=== PATIENT | male | born 1970 | race Caucasian/White ===

== ENCOUNTER 2018-02-24 10:49 | Emergency (ER) | payer OTHER, SELFPAY ==
[2018-02-24 10:49] VITALS: BP 178/108; PULSE 66; RESP 20; TEMP 37.2; O2SAT 97; BMI 44.3
--- NOTE | 2018-02-24 10:59 | RAD_ITS ---
STUDY: X-RAY - LEFT FOOT CLINICAL: Male, 47 years old. Laceration and pain following injury. TECHNIQUE: 3 view(s) of the foot. COMPARISON: None. FINDINGS: There is a dorsal talar neck ?beak?. Normal visualized subtalar, talonavicular, calcaneocuboid, tarsal and tarsometatarsal articulations. Normal metatarsi. Normal metatarsophalangeal joint of the great toe. Normal tibial and fibular sesamoid bones. Normal interphalangeal joint of the great toe. Comminuted nondisplaced fracture at the tuft of the distal phalanx of the great toe. Tiny radiopacities are seen most likely within the nailbed. Normal second through fifth metatarsophalangeal joints. Normal interphalangeal joints and phalanges of the lesser toes. There is non-specific soft tissue swelling of the foot. RAD/Foot min 3 Views IMPRESSION: Nondisplaced comminuted fracture at the tuft of the distal phalanx of the great toe with a tiny radiopacities most likely within the nailbed. Electronically Signed: Cameron Chavarria MD at 11:38 EDT Tel [phone], Service support ,
--- NOTE | 2018-02-24 11:01 | ED.VISSUMM ---
- ER Visit Summary Date of Service: 02/24/18 Chief Complaint: Crush injury left great toe History of Present Illness: The patient is a 47 M who is otherwise healthy presents with crush injury to left great toe. She was in his normal state of health. He had samples on was moving a piece of sheet metal. 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 He suffered immediate pain and bleeding. He is unsure of his last tetanus shot. He takes no anticoagulants. The patient is otherwise healthy. He did apply dressing presented here for further evaluation. Physical Examination: Exam is relatively unremarkable. Patient does have a 3 cm full-thickness laceration from the lateral distal aspect of the left great toe that tracks proximally medially across the nail. There is nail involvement. Sensation is preserved. Minimal active bleeding. Test Results: [] Emergency Department Course and Treatment: Digital block was performed. The patient's tetanus was updated. I did obtain plain films. The patient has open tuft fracture of the distal phalanges but there is retained metallic foreign bodies. Given the mechanism of injury, complex nail injury, and retained foreign bodies of fracture I did discuss the patient with Dr. Valdez. Did come to the emergency department to evaluate the patient. He did repair the laceration. See his documentation for that note. The patient will be discharged on oral antibiotics and will follow up with Dr. lewis for reevaluation. Treatment Plan: [] Disposition: Charge Impression: 1. Open tuft fracture with nail bed laceration This note was generated with [employer] dictation software. It may contain incorrect words, spelling, and punctuation that were not noted in review of the chart prior to signing ED Disposition - Plan for ED Patient: Chief Complaint: Laceration Instructions: ED Laceration Foot Prescriptions: Amox/Clavulanate Tablet [Augmentin Tablet] 875 mg PO Q12H #20 tab Ciprofloxacin [Cipro] 500 mg PO BID #14 tab Referrals: Garry Valdez DPM [STAFF PHYSICIAN] -
[2018-02-24 11:39] VITALS: BP 176/90
[2018-02-24] MEDS: Diphth,Pertuss(Acell),Tet Vac 0.5 ML Vial IM (11:40)
[2018-02-24] MEDS: Bupivacaine Mpf 0.5% 30 ML VIAL INFILT (11:42)
[2018-02-24] MEDS: Cefazolin 1 GM/50 ML BAG IV (12:22)
--- NOTE | 2018-02-24 14:15 | PCM.CONS.GEN ---
Reason for Consult Date of Consultation: 02/24/18 Reason for Consultation: Left great toe injury History of Present Illness: The patient is a 47 year old gentleman with history of HTN, presented to the ER today after dropping sheet metal on left great toe. He injured the toenail and sustained laceration and open fracture. Xrays showed foreign metallic fragments in the site. I was called by the ER, Dr. Leon for further evaluation. Patient relates he was wearing flip flops at time of injury at work. He denies any other complaints. Past Medical History Allergies tetracycline [Tetracycline] Allergy (Verified 02/24/18 10:51) Unknown Home Medications: Ambulatory Orders Medication Instructions Recorded Lisinopril/Hydrochlorothiazide 10 - 12.5 mg PO DAILY 05/06/14 [Lisinopril-Hctz 10-12.5 mg Tab] Amox/Clavulanate Tablet [Augmentin 875 mg PO Q12H #20 tab 02/24/18 Tablet] Ciprofloxacin [Cipro] 500 mg PO BID #14 tab 02/24/18 Smoking Status: Never smoker Review of Systems Constitutional: Denies: Chills, Fever Respiratory: Reports: Shortness of breath at rest. Denies: Shortness of Breath Gastrointestinal: Denies: Nausea, Vomiting Musculoskeletal: Reports: Foot Pain - from left great toe injury, otherwise no other pain present. Denies: Back Pain, Joint Pain, Muscle pain - Physical Exam General: Alert, Oriented x3, Cooperative, No apparent distress Extremities: Capillary Refill Less than 3 Seconds, No Calf Tenderness, Peripheral Pulses Normal, - - Left hallux with deep laceration overlying the distal aspect of the toe, down to bone, there is metallic fragments in the wound bed, CFT < 2 seconds to the toe, and to all toes bilateral. There is no maloder, no necrosis, no fluctuance, no crepitus, no abscess, no streaking, no erythema to the foot or ankle bilateral. Sensation is intact bilateral foot, motor function intact. DP and PT pulses palpable and no evidence of ischemia to the foot bilateral. Muscle strength intact to the foot/ankle bilateral. Skin: Ulcer/ Wound - Left hallux as already noted, otherwise none noted. Psych/Mental Status: Appropriate, Alert and oriented to time, place, person, mood and affect Vital Signs Temp Pulse Resp BP Pulse Ox 99 F 66 20 H 176/90 H 97 02/24/18 10:49 02/24/18 10:49 02/24/18 10:49 02/24/18 11:39 02/24/18 10:49 Oxygen Delivery Method Room Air Weight: 136.078 kg Body Mass Index (BMI) 44.3 Assessment/Plan Left great toe nail bed injury, laceration, and distal phalanx fracture - open with foreign body Reviewed findings with patient. Reviewed left foot xrays. Discussed the options with patient. He agreed with proceed forward with total toenail avulsion/removal, with debrde, irrigation and closure to the left great toe. Reviewed the procedure, possible benefits vs risks, and all alternative options. This was discussed with him in detail. He agreed, the consent form was reviewed with him, he freely signed it. All of his questions were answered. The left great toe had already be anesthetized by Dr. Leon. Also patient had already received IV Ancef per Dr. Leon. The left foot was scrubbed, prepped and draped in the usual aseptic fashion. A digital tourniquet was placed around the base the left hallux. There was noted to be deep laceration to the distal aspect of the left great down, through the distal tuft of the distal phalanx (also through the nail). A culture was obtained and sent to microbiology for further evaluation. The nail was removed/avulsed using a hemostat. It was noted there was significant small metallic fragments in the wound bed, which were removed with a grape picker. The site was flushed out with copious amounts of sterile normal saline solution mixed with Betadine. All metallic fragments were noted to be removed. The tissues appeared healthy and viable, the soft tissue and bone were healthy and viable. The skin was reapproximated using 4-0 Nylon. The digital tourniquet was removed (was in place for 15 minutes). There was immediate return of vascular flow to the foot, CFT < 2 seconds and normal temperature present. A dressing was applied which consisted of adaptic, gauze, cristiana and osmar dressing. He is to leave the dressing clean, dry and intact until tomorrow at which time change dressing BID. Cleanse with anti-bacterial soap, and apply Betadine solution and cover with gauze dressing. Keep offloaded at all times. A surgical shoe was fitted and dispensed. He is to keep the foot elevated, and limit activities as much as possible. Advised patient to follow up with me on , sooner if needed. He was not cleared to return to work. Will follow culture results, he was prescribed Augmentin and Cipro - reviewed possible side effects. Reviewed with Dr. Leon.
--- NOTE | 2018-02-24 14:27 | CON.PCM_ITS ---
Reason for Consult Date of Consultation: 02/24/18 Reason for Consultation: Left great toe injury History of Present Illness: The patient is a 47 year old gentleman with history of HTN, presented to the ER today after dropping sheet metal on left great toe. He injured the toenail and sustained laceration and open fracture. Xrays showed foreign metallic fragments in the site. I was called by the ER, Dr. Leon for further evaluation. Patient relates he was wearing flip flops at time of injury at work. He denies any other complaints. Past Medical History Allergies tetracycline [Tetracycline] Allergy (Verified 02/24/18 10:51) Unknown Home Medications: Ambulatory Orders Medication Instructions Recorded Lisinopril/Hydrochlorothiazide 10 - 12.5 mg PO DAILY 05/06/14 [Lisinopril-Hctz 10-12.5 mg Tab] Amox/Clavulanate Tablet [Augmentin 875 mg PO Q12H #20 tab 02/24/18 Tablet] Ciprofloxacin [Cipro] 500 mg PO BID #14 tab 02/24/18 Smoking Status: Never smoker Review of Systems Constitutional: Denies: Chills, Fever Respiratory: Reports: Shortness of breath at rest. Denies: Shortness of Breath Gastrointestinal: Denies: Nausea, Vomiting Musculoskeletal: Reports: Foot Pain - from left great toe injury, otherwise no other pain present. Denies: Back Pain, Joint Pain, Muscle pain - Physical Exam General: Alert, Oriented x3, Cooperative, No apparent distress Extremities: Capillary Refill Less than 3 Seconds, No Calf Tenderness, Peripheral Pulses Normal, - - Left hallux with deep laceration overlying the distal aspect of the toe, down to bone, there is metallic fragments in the wound bed, CFT < 2 seconds to the toe, and to all toes bilateral. There is no maloder, no necrosis, no fluctuance, no crepitus, no abscess, no streaking, no erythema to the foot or ankle bilateral. Sensation is intact bilateral foot, motor function intact. DP and PT pulses palpable and no evidence of ischemia to the foot bilateral. Muscle strength intact to the foot/ankle bilateral. Skin: Ulcer/ Wound - Left hallux as already noted, otherwise none noted. Psych/Mental Status: Appropriate, Alert and oriented to time, place, person, mood and affect Vital Signs Temp Pulse Resp BP Pulse Ox 99 F 66 20 H 176/90 H 97 02/24/18 10:49 02/24/18 10:49 02/24/18 10:49 02/24/18 11:39 02/24/18 10:49 Oxygen Delivery Method Room Air Weight: 136.078 kg Body Mass Index (BMI) 44.3 Assessment/Plan Left great toe nail bed injury, laceration, and distal phalanx fracture - open with foreign body Reviewed findings with patient. Reviewed left foot xrays. Discussed the options with patient. He agreed with proceed forward with total toenail avulsion/removal , with debrde, irrigation and closure to the left great toe. Reviewed the procedure, possible benefits vs risks, and all alternative options. This was discussed with him in detail. He agreed, the consent form was reviewed with him , he freely signed it. All of his questions were answered. The left great toe had already be anesthetized by Dr. Leon. Also patient had already received IV Ancef per Dr. Leon. The left foot was scrubbed, prepped and draped in the usual aseptic fashion. A digital tourniquet was placed around the base the left hallux. There was noted to be deep laceration to the distal aspect of the left great down, through the distal tuft of the distal phalanx ( also through the nail). A culture was obtained and sent to microbiology for further evaluation. The nail was removed/avulsed using a hemostat. It was noted there was significant small metallic fragments in the wound bed, which were removed with a molded goods spot picker. The site was flushed out with copious amounts of sterile normal saline solution mixed with Betadine. All metallic fragments were noted to be removed. The tissues appeared healthy and viable, the soft tissue and bone were healthy and viable. The skin was reapproximated using 4-0 Nylon. The digital tourniquet was removed (was in place for 15 minutes). There was immediate return of vascular flow to the foot, CFT < 2 seconds and normal temperature present. A dressing was applied which consisted of adaptic, gauze, cristiana and osmar dressing. He is to leave the dressing clean, dry and intact until tomorrow at which time change dressing BID. Cleanse with anti-bacterial soap, and apply Betadine solution and cover with gauze dressing. Keep offloaded at all times. A surgical shoe was fitted and dispensed. He is to keep the foot elevated, and limit activities as much as possible. Advised patient to follow up with me on , sooner if needed. He was not cleared to return to work. Will follow culture results, he was prescribed Augmentin and Cipro - reviewed possible side effects. Reviewed with Dr. Leon.
[2018-02-24 14:30] VITALS: BP 180/130; PULSE 78; RESP 16; O2SAT 99
[2018-02-24 16:02] LABS: M R Staph aureus DNA By PCR Negative (Negative); Probe Check PASS; Specimen Processing Control PASS; Staph aureus DNA By PCR NEGATIVE (Negative)
== END 2018-02-24 14:35 | disposition home or self-care (01) ==
LOC: ED 11:08
PROVIDERS: Podiatrist; Emergency Provider Emergency Medicine; Family Provider Family Medicine; PCP Family Medicine
DX: S92.425B Nondisplaced fracture of distal phalanx of left great toe, initial encounter for open fracture (principal); I10 Essential (primary) hypertension; Z23 Encounter for immunization; Z79.899 Other long term (current) drug therapy; W20.8XXA Other cause of strike by thrown, projected or falling object, initial encounter; Y93.89 Activity, other specified; Y92.89 Other specified places as the place of occurrence of the external cause; Y99.8 Other external cause status
CPT/HCPCS: 12042; 73630; 87070; 87075; 87205; 87640; 90715; 96365; 99283

== ENCOUNTER 2018-10-08 17:59 | Emergency (ER) | payer OTHER, SELFPAY ==
[2018-10-08 18:00] VITALS: BP 170/101; PULSE 102; RESP 16; TEMP 35.7; O2SAT 96; BMI 50.0
--- NOTE | 2018-10-08 18:33 | CT_ITS ---
STUDY: CT BRAIN WITHOUT CONTRAST REASON FOR EXAM: Male, 48 years old. Trauma RADIATION DOSAGE (If Supplied By Facility): CTDIvol = ( 44.99 ) mGy, DLP = ( 812.98 ) mGycm TECHNIQUE: Transaxial CT imaging of the brain was performed without administration of intravenous contrast material. Individualized dose optimization techniques were used for this CT. COMPARISON: None. FINDINGS: Normal soft tissue structures. Normal calvarium. Normal size ventricles and extra-axial spaces for the patient's age. Normal white matter tracts of the cerebral hemispheres. Normal basal ganglia and thalami. Normal brainstem. Normal cerebellum. There is no intracranial hemorrhage. There are no findings of an acute ischemic infarction. There is minimal mucosal thickening of the right maxillary sinus. There is a subcentimeter polypoid defect of the anterior right maxillary sinus. CT/Brain/Head without Contrast IMPRESSION: Mild chronic right maxillary sinusitis. Small polypoid defect of the anterior right maxillary sinus consistent with mucoid retention cyst. There is no intracranial hemorrhage or calvarial fracture. Electronically Signed: Vaughn Castellanos MD at 19:56 EST , Service support ,
--- NOTE | 2018-10-08 18:33 | RAD_ITS ---
STUDY: X-RAY - LEFT SHOULDER REASON FOR EXAM: Male, 48 years old. Fell and injured left shoulder TECHNIQUE: 4 view(s) of the shoulder. COMPARISON: None. FINDINGS: Normal glenohumeral articulation. Normal acromioclavicular joint. Normal acromion. Normal humeral head and visualized proximal humerus. The soft tissue structures are unremarkable. Normal visualized pulmonary apex. RAD/Shoulder min 2 Views IMPRESSION: Normal x-ray examination of the shoulder. Electronically Signed: Alvin Cervantes MD at 19:08 EST , Service support ,
--- NOTE | 2018-10-08 19:29 | ED.DCSUM_ITS ---
- ER Visit Summary Date of Service: 10/08/18 Chief Complaint: Fall History of Present Illness: The patient is a 48 M who presents after a fall yesterday. Patient states he was getting out of his truck when he slipped on the ice and fell. Patient states he had a brief loss of consciousness. Patient states he also was incontinent of urine when he woke up. Today, the patient noticed pain in his left shoulder, neck, low back, and occipital area. Patient admits to nausea but denies any vomiting. Patient admits to occipital and frontal headaches. Patient denies any paresthesias or weakness. Patient states his shoulder pain is sharp and is worse with movement. Physical Examination: Vital signs are stable. Patient is afebrile. Patient is in no acute distress. Musculoskeletal exam reveals tenderness over the left shoulder. There is no deformity noted. Range of motion of the left shoulder was limited in abduction past 90 degrees and flexion past 90 degrees secondary to pain. There is tenderness and spasm of the cervical paraspinal muscles as well as the lumbar paraspinal muscles. There is no midline tenderness. There is no bony crepitance or step-off noted. Cranial nerves II through XII are intact. Strength is 5/5 bilaterally in the upper and lower extremities. There are no sensory deficits noted. The remaining physical exam is within normal limits. Test Results: CT scan of the brain was obtained. There is no acute intracranial abnormality noted. X-rays of the left shoulder were obtained. There is no acute fracture or dislocation. These were interpreted by the radiologist and reviewed by myself. Emergency Department Course and Treatment: Patient was instructed to use ice to the areas. Patient was instructed to follow-up with his primary care physician in 5-7 days. Patient was given head injury instructions. Patient was instructed to take Tylenol or ibuprofen as needed for pain. Patient understood and was agreeable with the plan. All questions were answered. Disposition: Discharge home Impression: 1. Left shoulder joint sprain 2. Closed head injury This note was generated with [employer] dictation software. It may contain incorrect words, spelling, and punctuation that were not noted in review of the chart prior to signing ED Disposition - Plan for ED Patient: Disposition: Home or Assisted Living Diagnosis: Sprain of left shoulder joint, Closed head injury Instructions: ED Head Injury Closed, ED Sprain Shoulder Referrals: Jhon Phillips III, MD [Primary Care Provider] -
[2018-10-08 20:18] VITALS: RESP 16
[2018-10-08 20:27] VITALS: BP 162/80; PULSE 78; RESP 16; O2SAT 98
== END 2018-10-08 20:28 | disposition home or self-care (01) ==
PROVIDERS: Emergency Provider Emergency Medicine; Family Provider Family Medicine; PCP Family Medicine
DX: S43.402A Unspecified sprain of left shoulder joint, initial encounter (principal); S06.9X9A Unspecified intracranial injury with loss of consciousness of unspecified duration, initial encounter; I10 Essential (primary) hypertension; Z79.899 Other long term (current) drug therapy; W00.0XXA Fall on same level due to ice and snow, initial encounter; Y93.89 Activity, other specified; Y92.89 Other specified places as the place of occurrence of the external cause; Y99.8 Other external cause status
CPT/HCPCS: 70450; 73030; 99282

== ENCOUNTER 2018-12-19 08:09 | Outpatient (RCR) | payer OTHER, SELFPAY | END 2018-12-19 23:59 | disposition home or self-care (01) | LOC: NS 08:09 | PROVIDERS: Family Provider Family Medicine; PCP Family Medicine; Visit Provider Nurse Practitioner Family | DX: Z71.3 Dietary counseling and surveillance (principal); E66.01 Morbid (severe) obesity due to excess calories; Z68.42 Body mass index [BMI] 45.0-49.9, adult; I10 Essential (primary) hypertension | CPT/HCPCS: 97802 ==

== ENCOUNTER 2020-06-15 08:00 | Outpatient (RCR) | payer OTHER, SELFPAY ==
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
--- NOTE | 2020-04-04 11:31 | HP.PTREVAL_ITS ---
BINU FLORENTINO, It has been my pleasure to treat ABEL GUILLORY Jr. over the last 8 visits for Left LE Degloving- L LE Skin Graft. Please see the progress note below for an update on the physical therapy plan of care! Subjective: Patient reports that he just got back from [place]- stayed out of the sun, sand and pool due to the incision. His family is concerned about his mental health in the car. Has been in a shoe for the first time- he is happier in this due to the heel having less pain. Is doing lots of exercises. Objective/Function: Posture: FH, RS- can correct but does not maintain. Gait: shoe today- decreased stance on the left LE with poor heel/toe pattern Observation: left LE bandaged with gauze and osmar bandage- did not have them unwrap- No s/s of infection- skin graft is healing well Palpation: tender throughout- did not press directly on skin graft ROM: DF: 8 degrees from neutral, PF: 30 degrees, Inv: neutral, Ever: neutral. Strength: isometric: 3+/5 with pain. Stair: non recip with 2 HR- requires UE for progression and control of descen. Seated HR/TR: able with good movement Plan Plan: GENTLE ROM and functional mobility- WBAT- work towards d/c walker-find PT if questions. HEP 03/16: weight shift, Toe raise and DF stretch on step- GENTLE. HEP 03/21: seated heel slides and toe raises without shoe. 04/04: Continue 2-3x a week for 4 weeks for ROM, strength, flex and muscular endurance- for functional mobility. Goals Goal 1:: Patient will be I with HEP and progression Goal Time Frame: 4-6 Weeks Goal Progress: Progressing Goal 2:: Patient will ambulate >300 feet with no AD and a normalized gait pattern Goal Time Frame: 4-6 Weeks Goal Progress: Progressing Goal 3:: Patient will demo +10 degrees of ROM in all directions in the left ankle Goal Time Frame: 4-6 Weeks Goal Progress: Progressing Goal 4:: Patient will report no more than 2/10 pain for 1 week Goal Time Frame: 4-6 Weeks Goal Progress: Progressing Goal 5:: Patient will asc/desc 8 stairs recip with 1 HR Goal Progress: Progressing Anticipated Interventions Patient/Client Instruction: Educate patient on: Benefits of Fitness Program Therapeutic Exercise to Include: Strength training, Endurance training, Balance training, Coordination, Agility training, Body mechanics, Postural training, Flexibilty training, Gait and locomotor training, Neuromotor development, Passive ROM, Active ROM, Dynamic Lumbar Stabilization, Scapular Strength/Stabilization For the Purpose of:: To improve muscle performance and motor function Functional Training to Include: ADL Training, Functional home training, Gait tr aining For the Purpose of:: To improve ability to perform ADL's Please do not hesitate to contact me at [phone] by phone or if you have questions or concerns regarding this new plan of care! Sincerely, INÉS HydeT
--- NOTE | 2020-05-23 09:39 | HP.PTREVAL ---
BINU FLORENTINO, It has been my pleasure to treat ABEL GUILLORY Jr. over the last 22 visits for Left LE Degloving- L LE Skin Graft. Please see the progress note below for an update on the physical therapy plan of care! Subjective: Feels like he is really winded- he was weed eating 3 yards and was really winded and sweating. He reports that the ankle does great forwards and backwards. He is having a lot of difficulty with side to side activities. He still has swelling and is wearing a compression sleeve. Going down the stairs still feels abnormal and is painful 3/10. he has not done any physical work yet. Goes back to the MD on the 31 of May. Objective/Function: posture: fh, rs- can correct but does not maintain. Gait: antalgic- decreased stance on the left LE with poor heel/toe pattern with toes turned out to the side. Stairs: asc: recpirocal with increased push off and uses UE for propulsion. Desc: poor control with descent and decreased DF. SLS: 5 sec then LOB. Heel Raise/Toe Raise: able. Ambulation HR/TR: able but reports discomfort and hard to do TR ambulation. Tandem Walk: 5 steps forwards and 5 steps backwards. Strength:Ankle: 5/5, Knee: 4+/5 with discomfort Hip: 4/5 throughout Core: fair. ROM: DF: 2 degrees from neutral, PF: 60 degrees, Inver: 10 degrees with pain, Ever: 5 degrees with pain. Flex: Gastroc: severe, Solues: severe Hamstring: severe Plan Plan: Continue 2-3 x a week for 4 weeks. Goals Goal 1:: Patient will be I with HEP and progression Goal Time Frame: 4-6 Weeks Goal Progress: Progressing Goal 2:: Patient will ambulate >300 feet with no AD and a normalized gait pattern Goal Time Frame: 4-6 Weeks Goal Progress: Progressing Goal 3:: Patient will demo +10 degrees of ROM in all directions in the left ankle Goal Time Frame: 4-6 Weeks Goal Progress: Progressing Goal 4:: Patient will report no more than 2/10 pain for 1 week Goal Time Frame: 4-6 Weeks Goal Progress: Progressing Goal 5:: Patient will asc/desc 8 stairs recip with 1 HR Goal Progress: Progressing Anticipated Interventions Patient/Client Instruction: Educate patient on: Benefits of Fitness Program Therapeutic Exercise to Include: Strength training, Endurance training, Balance training, Coordination, Agility training, Body mechanics, Postural training, Flexibilty training, Gait and locomotor training, Neuromotor development, Passive ROM, Active ROM, Dynamic Lumbar Stabilization, Scapular Strength/Stabilization For the Purpose of:: To improve muscle performance and motor function Functional Training to Include: ADL Training, Functional home training, Gait training For the Purpose of:: To improve ability to perform ADL's Please do not hesitate to contact me at [phone] by phone or if you have questions or concerns regarding this new plan of care! Sincerely, INÉS HydeT
--- NOTE | 2020-08-10 08:54 | HP.PTDCSUM ---
It has been my pleasure to treat ABEL GUILLORY Jr. referred by BINU FLORENTINO, with the diagnosis of Left LE Degloving- L LE Skin Graft for a total of 26 visit(s). Discharge Date: Please see the following information for a summary of their discharge status. Subjective: Patient reports his knee is bothering him the most- no ankle pain Left knee Pain Intensity (Out of 10): 0 % Improvement: 50 Objective/Function: Patient was able to complete without incidence. No increase in s/s throughout session- continue to progress as able- functional mobility Goal 1:: Patient will be I with HEP and progression Goal Progress: Progressing Goal 2:: Patient will ambulate >300 feet with no AD and a normalized gait pattern Goal Progress: Progressing Goal 3:: Patient will demo +10 degrees of ROM in all directions in the left ankle Goal Progress: Progressing Goal 4:: Patient will report no more than 2/10 pain for 1 week Goal Progress: Progressing Goal 5:: Patient will asc/desc 8 stairs recip with 1 HR Goal Progress: Progressing Plan: Continue an additional 8 visitis per POC If there are questions or concerns regarding this patient's physical therapy, please feel free to call me at [phone]. Thank you for the referral of this patient. Sincerely, Marta Patrick DPT
== END 2020-06-15 19:00 | disposition home or self-care (01) ==
LOC: PT 08:00
PROVIDERS: PCP Family Medicine
DX: S89.92XD Unspecified injury of left lower leg, subsequent encounter (principal); V89.2XXD Person injured in unspecified motor-vehicle accident, traffic, subsequent encounter
CPT/HCPCS: 97016; 97110; 97140; 97162; 97164; 97166; 97530

== ENCOUNTER → 2020-07-02 | Outpatient (CLI) | payer OTHER, SELFPAY ==
[2020-06-23 10:39] VITALS: BMI 50.2
[2020-06-28 06:45] VITALS: BMI 50.8
--- NOTE | 2020-07-02 06:56 | MRI_ITS ---
STUDY: MRI LEFT KNEE REASON FOR EXAM: Male, 50 years old. Left knee pain TECHNIQUE: Standardized fat and water weighted pulse sequences were obtained in all 3 orthogonal planes. COMPARISON: None. FINDINGS: There is a very subtle area of increased signal within the posterior horn of the medial meniscus. Subtle meniscal tear cannot be excluded. Normal hyaline cartilage of the medial femorotibial compartment. Normal medial femoral condyle and tibial plateau. Normal medial collateral ligamentous complex (MCL). Normal distal semimembranosus, gracilis and semitendinosus tendons. Normal lateral meniscus. Normal hyaline cartilage of the lateral femorotibial compartment. Normal lateral femoral condyle and tibial plateau. Normal proximal tibiofibular articulation. Normal lateral collateral (fibular) ligament. Normal popliteus tendon. Normal biceps femoris tendon. Normal anterior cruciate ligament (ACL). Normal posterior cruciate ligament (PCL). Very subtle fraying of the superior surface of the patellar cartilage suggesting mild chondromalacia patella. Normal hyaline cartilage of the patellofemoral compartment. Normal medial and lateral patellar retinaculum. Normal quadriceps tendon. Normal patellar tendon. Normal Hoffa''s fat pad. There is no joint effusion. No significant edema within Hoffa''s fat The soft tissues are unremarkable. The otherwise visualized osseous structures are unremarkable. MRI/Lower Ext Joint Only (Routine) IMPRESSION: Very subtle intrasubstance signal within the posterior horn of the medial meniscus. Tiny intrasubstance tear cannot be excluded. In addition, mild chondromalacia patella. Otherwise, grossly unremarkable MRI knee Electronically Signed: Keven Estrada DO at 13:16 EDT Tel , Service support ,
== END | disposition home or self-care (01) ==
LOC: MRI 06:56
PROVIDERS: PCP Family Medicine; Referring Provider Orthopaedic Surgery; Visit Provider Orthopaedic Surgery
DX: M25.562 Pain in left knee (principal); S89.92XA Unspecified injury of left lower leg, initial encounter
CPT/HCPCS: 73721

== ENCOUNTER 2021-11-01 21:38 | Emergency (ER) | payer OTHER, SELFPAY ==
[2021-11-01 21:39] VITALS: BP 155/107; PULSE 89; RESP 17; TEMP 36.6; O2SAT 95; BMI 51.7
[2021-11-01 21:47] VITALS: BP 150/107; PULSE 83; RESP 15; O2SAT 95
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
[2021-11-01 22:45] VITALS: BP 120/92; PULSE 81; RESP 18; O2SAT 94
== END 2021-11-01 22:45 | disposition home or self-care (01) ==
LOC: ED 22:35
PROVIDERS: Emergency Provider Emergency Medicine; PCP Family Medicine; Visit Provider Emergency Medicine
DX: S16.1XXA Strain of muscle, fascia and tendon at neck level, initial encounter (principal); I10 Essential (primary) hypertension; M25.552 Pain in left hip; M79.10 Myalgia, unspecified site; V53.5XXA Driver of pick-up truck or van injured in collision with car, pick-up truck or van in traffic accident, initial encounter; Y93.89 Activity, other specified; Y99.9 Unspecified external cause status; Y92.410 Unspecified street and highway as the place of occurrence of the external cause; Z79.899 Other long term (current) drug therapy
CPT/HCPCS: 99282

== ENCOUNTER → 2022-04-26 | Outpatient (CLI) | payer OTHER, SELFPAY | END | disposition home or self-care (01) | PROVIDERS: PCP Internal Medicine; Visit Provider Internal Medicine | DX: U07.1 COVID-19 (principal); R50.9 Fever, unspecified; R09.81 Nasal congestion | CPT/HCPCS: 87635; U0003; U0005 ==

== ENCOUNTER → 2022-11-14 | Outpatient (CLI) | payer OTHER, SELFPAY ==
--- NOTE | 2022-11-14 07:45 | MRI_ITS ---
STUDY: MRI LUMBAR SPINE WITHOUT CONTRAST REASON FOR EXAM: Male, 52 years old. low back pain, right hip pain TECHNIQUE: Standardized fat and water weighted pulse sequences were obtained in the sagittal and axial planes. COMPARISON: Lumbar spine x-rays October 25, 2022 FINDINGS: T12-L1: Normal endplates. Normal disc height, hydration and morphology. Normal bilateral facet joints. Normal central canal and bilateral lateral recesses. Normal bilateral intervertebral neural foramina. Normal lumbar lordosis. There is no substantial scoliosis. Normal conus medullaris that terminates at T12 L1-2: Normal endplates. Normal disc height, hydration and morphology. Normal bilateral facet joints. Normal central canal and bilateral lateral recesses. Normal bilateral intervertebral neural foramina. L2-3: Normal endplates. Normal disc height, hydration and morphology. Normal bilateral facet joints. Normal central canal and bilateral lateral recesses. Normal bilateral intervertebral neural foramina. L3-4: Normal endplates. Normal disc height, hydration and morphology. Normal bilateral facet joints. Normal central canal and bilateral lateral recesses. Normal bilateral intervertebral neural foramina. L4-5: Grade 1 retrolisthesis Normal endplates. Normal disc height, hydration and minimal bulging disc osteophyte complex.. Mild facet arthropathy.. Normal central canal and bilateral lateral recesses. Mild bilateral neural foraminal encroachment.. L5-S1: Normal endplates. Normal disc height, desiccation and minor annular bulge.. Facet arthropathy slightly more pronounced on the right. Normal central canal and bilateral lateral recesses. Mild left neural foraminal encroachment and moderate narrowing on the right. Normal visualized sacral ala. Normal visualized paraspinous soft tissue structures. No significant change since prior exam given inherent differences in imaging modalities MRI/Spine Lumbar (Routine) IMPRESSION: No evidence for acute fracture or other significant bony pathology.. Mild spinal stenosis at L4-5 and L5-S1 more pronounced on the right secondary to bulging annuli and facet arthropathy. Findings as above Electronically Signed: Garry Soriano MD at 19:40 EST ,
== END | disposition home or self-care (01) ==
LOC: MRI 07:31
PROVIDERS: PCP Family Medicine; Referring Provider Orthopaedic Surgery; Visit Provider Orthopaedic Surgery
DX: M54.9 Dorsalgia, unspecified (principal)
CPT/HCPCS: 72148

== ENCOUNTER → 2022-12-07 | Outpatient (CLI) | payer OTHER, SELFPAY ==
--- NOTE | 2022-12-07 12:40 | RAD_ITS ---
CLINICAL HISTORY: Male, 52 years old. Left hip pain. PROCEDURE: ARTHROGRAM - LEFT HIP. CONSENT: The procedure as well as the benefits and possible complications including infection and bleeding were explained to the patient. Informed consent was obtained. FLUOROSCOPY TIME (if supplied): (1 minute and 35 seconds) minutes/seconds. 66.64 mGy Injection Information: 10 cc of dilute MRI contrast. Number of images obtained: One TECHNIQUE: (All elements of maximal sterile barrier technique followed, including US elements as applicable) The patient was in the supine position. The overlying skin was prepped and draped in the usual sterile fashion. Following local anesthetic application and under direct fluoroscopic guidance, a 22-gauge spinal needle was placed into the hip joint. 2 cc of Isovue-300 was injected for confirmation. Following this, 10 cc of dilute MR contrast was injected. The patient tolerated the procedure well. MRI will follow. RAD/Arthrogram Hip w/ MRI IMPRESSION: Left hip arthrogram for MRI examination. Electronically Signed: Cameron Chavarira MD at 14:01 EDT ,
[2022-12-07] MEDS: Gadoterate meglumine 2.5 MMOL 10 ML, Iopamidol 5 ML, Lidocaine 1% (20 ml mdv) 5 ML, Epi... INTRAARTIC (13:10)
[2022-12-07] MEDS: Lidocaine 2% (5ml sdv) 5 ML VIAL.MPF INFILT (13:10)
[2022-12-07] MEDS: Iopamidol 10 ML in Syringe 1 EACH 600 ML INTRAARTIC (13:10)
--- NOTE | 2022-12-07 13:32 | MRI_ITS ---
INDICATION: Arthrogram LEFT hip derangement -- arthrogram EXAMINATION: MRI - MR Hip W/ Contrast TECHNIQUE: Multiplanar and multisequence MR images of the LEFT hip obtained following injection of 10 mL solution of dotarem gadolinium contrast on-site provider.. Sequences include coronal T2 fat-sat, axial T1 fat-sat, sagittal T1 fat-sat and T2 fat sat. Best images possible d/t body habitus which would not allow fabers view IV Contrast Dosage and Agent: None. COMPARISON: Fluoroscopic arthrogram December 07 2022. Pelvis radiograph November 20, 2022. FINDINGS: SOFT TISSUES: Gadolinium contrast is located just anterior external to the left hip joint tracking along the iliopsoas tendon. BONE: Normal bone marrow signal. No intraosseous edema, fracture, avascular necrosis, or aggressive osseous lesion. JOINT: Normal left hip alignment. Preserved joint spacing. No effusion. Labral evaluation is limited without intra-articular contrast, without evidence of grossly displaced labrum. . MUSCLES: Normal muscle bulk and signal. ACETABULAR LABRUM: No evidence of a tear on this non-arthrogram exam. TENDONS: The gluteal tendons, hamstrings tendons, and iliopsoas tendon are intact. BURSA: Mild edema superficial to the left greater trochanteric gluteus medius insertion without focal fluid collection. Evaluation for iliopsoas bursitis is limited by bursal contrast.. OTHER SOFT TISSUES: No ischiofemoral edema or gross narrowing.. PELVIS: Limited visualization. MRI/Lower Ext/Jt Only/W Contrast IMPRESSION: Injected contrast remains extra-articular just anterior to the joint which limits exam. Findings compatible with mild greater trochanteric bursitis. No acute intraosseous finding or evidence of gross labral displacement Electronically Signed: Sukhi Arndt MD at 8:09 EDT Reading Location ID and State: [facility] / [place] Tel , Service support ,
--- NOTE | 2022-12-24 12:45 | RAD_ITS ---
CLINICAL HISTORY: Male, 52 years old. Left hip pain. PROCEDURE: ARTHROGRAM - LEFT HIP RADIATION DOSAGE (If Supplied By Facility): 73 mGy. CONSENT: The procedure as well as the benefits and possible complications were explained to the patient. Informed consent was obtained. FLUOROSCOPY TIME (if supplied): (102 seconds) minutes/seconds Injection Information: 10 cc of dilute MRI contrast. Number of images obtained: One TECHNIQUE: (All elements of maximal sterile barrier technique followed, including US elements as applicable) The overlying skin was prepped and draped in the usual sterile fashion. Following local anesthetic application, left hip arthrogram was performed. 2 cc of Isovue-300 was injected for confirmation. Following this, 10 cc of dilute MRI contrast was injected. The patient tolerated the procedure well. RAD/Arthrogram Hip w/ MRI IMPRESSION: Left hip arthrogram for MRI examination. Electronically Signed: aCmeron Chavarria MD at 15:06 EDT ,
--- NOTE | 2022-12-24 13:50 | MRI_ITS ---
EXAM: MR LEFT LOWER EXTREMITY ARTHROGRAM WITHOUT AND WITH INTRAVENOUS CONTRAST, HIP CLINICAL INDICATION: LEFT HIP DERANGEMENT TECHNIQUE: Multiplanar and multisequence MR images of the left hip following injection of dilute gadolinium into the joint space. This report was created using Frazr report InflowControl technology. CONTRAST: The examination was performed following intra articular injection of 10mL arthrogram solution, containing a mixture of 0.8 mL of Clariscan in 100 mL of saline, into the joint by Dr Chavarria COMPARISON: December 07, 2022 examination. FINDINGS: TENDONS: FLEXORS: Unremarkable. Intact. EXTENSORS/HAMSTRING: Unremarkable. Intact. ABDUCTORS: Unremarkable. Intact. ADDUCTORS: Unremarkable. Intact. ROTATORS: Unremarkable. Intact. MUSCLES: See below. FLUID: Redemonstration of findings of mild trochanteric bursitis. No significant joint effusion. LABRUM: Unremarkable. No evidence of a tear. CARTILAGE: Unremarkable. No gross focal chondral defects or any significant arthritic changes. BONES/JOINTS: Very little contrast is seen within the joint space, limiting the diagnostic utility of this MR arthrography study. The injected contrast is identified anterior to the joint within the muscles along the injection tract. No concerning marrow signal alterations. OTHER SOFT TISSUES: Tendons are grossly unremarkable. MRI/Lower Ext/Jt Only/W Contrast IMPRESSION: 1. Very little contrast is seen within the joint space, limiting the diagnostic utility of this MR arthrography study. 2. There has been no significant change from the prior study with redemonstration of mild trochanteric bursitis. Electronically Signed: Shlomo Campuzano MD at 21:12 EDT ,
== END | disposition home or self-care (01) ==
PROVIDERS: PCP Family Medicine; Referring Provider Nurse Practitioner; Visit Provider Nurse Practitioner
DX: M24.852 Other specific joint derangements of left hip, not elsewhere classified (principal)
CPT/HCPCS: 27093; 73722; 77002; Q9967

== ENCOUNTER → 2022-12-24 | Outpatient (CLI) | payer OTHER, SELFPAY | END | disposition home or self-care (01) | PROVIDERS: PCP Family Medicine; Referring Provider Orthopaedic Surgery; Visit Provider Orthopaedic Surgery | DX: Z00.00 Encounter for general adult medical examination without abnormal findings (principal) | CPT/HCPCS: 27093; 73722; 77002; Q9967 ==

== ENCOUNTER 2023-02-20 15:30 | Outpatient (RCR) | payer OTHER, SELFPAY ==
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
--- NOTE | 2023-04-19 13:51 | HP.PT.NRP ---
Patient Information Patient Information: ABEL GUILLORY Jr. was seen in my office for initial evaluation on 01/15/23. The following Plan of Care was established for this patient: POC Established Initial Frequency: 2-3x /Week Initial Duration: 4-6 Weeks Anticipated Interventions Patient/Client Instruction: Educate patient on: Condition and Plan of Care For the Purpose of:: To decrease pain, To increase ROM, To improve nutrient delivery to tissue, To improve muscle performance and motor function and To increase tolerance to activity/condition/position Therapeutic Exercise to Include: Strength training, Endurance training, Flexibilty training, In an aquatic setting, Passive ROM and Active ROM For the Purpose of:: To decrease pain, To decrease swelling/inflammation, To improve nutrient delivery to tissue, To improve muscle performance and motor function, To increase tolerance to activity/condition/position, To improve ability of physical actions for home/community/work/leisure and To improve gait and locomotor functions Last Seen Last Seen: This patient was last seen in our office 02/20/23. Pertinent comments regarding their Physical therapy will appear below: Pt seen 10 visits of POC but no showed and cancelled for the last 3. At this point, it has been over 6 weeks and I will discontinue due to nonattendance. At this point I will be discontinuing this patient from physical therapy. I would be happy to see this patient again in the future if found appropriate by the physician. Thank you! Papa Jones, DPT, OCS, CSCS Balance/Gait/Functional tests Balance/Special Test Scores Lower Extremity Functional Score: 6
== END 2023-02-20 19:00 | disposition home or self-care (01) ==
LOC: PT 15:30
PROVIDERS: PCP Family Medicine; Referring Provider Orthopaedic Surgery; Visit Provider Orthopaedic Surgery
DX: M76.01 Gluteal tendinitis, right hip (principal); M76.02 Gluteal tendinitis, left hip
CPT/HCPCS: 97035; 97110; 97113; 97162; 97530

== ENCOUNTER 2024-08-09 12:13 | Emergency (ER) | payer OTHER, SELFPAY ==
[2024-08-09 12:13] VITALS: BP 192/123; PULSE 101; RESP 18; TEMP 35.8; O2SAT 100; BMI 50.8
[2024-08-09 12:47] LABS: Absolute Lymphocyte Count 2.25 X10^3/uL (0.83-4.51); Absolute Neutrophil Count 8.2 X10^3/uL (2.0-7.7); Basophil# 0.05 X10^3/uL; Basophil% 0.4 % (0-1); Eosinophil# 0.24 X10^3/uL; Hematocrit 45.7 % (40-54); Hemoglobin 15.2 g/dL (13.0-16.5); Lymphocyte # 2.25 X10^3/ul (0.83-4.51); Lymphocyte % 19.1 % (19-41); Mean Corp Hgb Conc 33.3 g/dL (32-36); Mean Corpuscular Hgb 28.3 pg (27.0-32.0); Mean Corpuscular Volume 84.9 fL (80-94); Mean Platelet Vol. 9.6 fl (6.2-12.0); Monocyte# 1.02 X10^3/uL; Monocyte% 8.6 % (0-10); NRBC Flagged by Analyzer 0 % (0-5); Neutrophil % 69.6 % (47-70); Platelet Count 268 K/mm3 (150-450); RBC Distribution Width CV 14.1 % (11.6-14.6); Red Blood Count 5.38 M/mm3 (4.6-6.2); White Blood Count 11.8 K/mm3 (4.4-11.0)
[2024-08-09] MEDS: Lidocaine 2% Viscous15 ML UDC 15 ML PO (12:54)
[2024-08-09] MEDS: Mag Hydrox/Al Hydrox/Simeth 30 ML UDC PO (12:55)
[2024-08-09 13:10] LABS: AST(SGOT) 14 U/L (15-37); Alanine Aminotransfer ALT/SGPT 34 U/L (16-61); Albumin, Serum 3.8 g/dL (3.2-5.0); Alkaline Phosphatase 86 U/L (45-117); Bilirubin, Direct 0.19 mg/dL (0.00-0.30); Globulin 3.3 g/dL (2.2-4.2); Lipase 22 U/L (13-75); Protein, Total 7.1 g/dL (6.4-8.2)
[2024-08-09 13:15] VITALS: BP 140/69; PULSE 85; RESP 18; O2SAT 95
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
[2024-08-09 13:59] VITALS: BP 138/77; PULSE 81; RESP 16; TEMP 36.6; O2SAT 99
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
== END 2024-08-09 14:04 | disposition home or self-care (01) ==
PROVIDERS: Emergency Provider Emergency Medicine; PCP Family Medicine; Visit Provider Emergency Medicine
DX: R10.13 Epigastric pain (principal); I10 Essential (primary) hypertension; Z88.1 Allergy status to other antibiotic agents; Z79.899 Other long term (current) drug therapy
CPT/HCPCS: 80076; 83690; 85025; 99283; A4216

== ENCOUNTER 2024-08-10 17:03 | Inpatient (IN) | payer OTHER, SELFPAY ==
[2024-08-10 17:07] VITALS: BP 168/103; PULSE 120; RESP 18; TEMP 37; O2SAT 97; BMI 46.8
[2024-08-10 17:24] LABS: Absolute Lymphocyte Count 2.35 X10^3/uL (0.83-4.51); Absolute Neutrophil Count 15.1 X10^3/uL (2.0-7.7); Basophil# 0.04 X10^3/uL; Basophil% 0.2 % (0-1); Eosinophil# 0.11 X10^3/uL; Eosinophils% 0.6 % (0-5); Hematocrit 45.5 % (40-54); Hemoglobin 15.3 g/dL (13.0-16.5); Lymphocyte # 2.35 X10^3/ul (0.83-4.51); Lymphocyte % 12.1 % (19-41); Mean Corp Hgb Conc 33.6 g/dL (32-36); Mean Corpuscular Hgb 28.5 pg (27.0-32.0); Mean Corpuscular Volume 84.7 fL (80-94); Mean Platelet Vol. 9.6 fl (6.2-12.0); Monocyte# 1.66 X10^3/uL; Monocyte% 8.6 % (0-10); NRBC Flagged by Analyzer 0 % (0-5); Neutrophil # 15.14 X10^3/uL (2.7-7.7); POSITIVE DIFFERENTIAL YES; Platelet Count 291 K/mm3 (150-450); RBC Distribution Width CV 14.2 % (11.6-14.6); RBC Distribution Width SD 43.4 fl (35.1-43.9); Red Blood Count 5.37 M/mm3 (4.6-6.2); White Blood Count 19.4 K/mm3 (4.4-11.0)
[2024-08-10 17:48] LABS: ALB/GLOB Ratio 0.9 RATIO (0.9-2.4); AST(SGOT) 13 U/L (15-37); Alanine Aminotransfer ALT/SGPT 30 U/L (16-61); Albumin, Serum 3.6 g/dL (3.2-5.0); Alkaline Phosphatase 85 U/L (45-117); Anion Gap 5 (5-15); BUN 12 mg/dL (7-18); BUN/Creat Ratio 11.1 RATIO (10-20); Calcium,Total 9.8 mg/dL (8.5-10.1); Chloride 103 mmol/L (98-107); Creatinine, Serum 1.08 mg/dL (0.70-1.30); EST Glomerular Filtration Rate 76 mL/min (>60); Est Glom Filt Rate - Afr Amer 92 mL/min (>60); Estimated Creatinine Clearance 113.19 ml/min; Globulin 3.9 g/dL (2.2-4.2); Glucose 142 mg/dL (74-106); Potassium 3.7 mmol/L (3.5-5.1); Protein, Total 7.5 g/dL (6.4-8.2); Sodium Level 135 mmol/L (136-145)
[2024-08-10 17:58] LABS: Differential Indicated SCAN CRITERIA MET
[2024-08-10 17:59] LABS: Platelet Estimate ADEQUATE (ADEQ); Red Cell Morphology NORM C+C NORMAL (NORM C&C)
[2024-08-10 18:00] LABS: Ovalocyte RARE
--- NOTE | 2024-08-10 18:26 | US_ITS ---
STUDY: ABDOMINAL ULTRASOUND - RIGHT UPPER QUADRANT REASON FOR VISIT: Male, 54 years old pain TECHNIQUE: Ultrasound evaluation of the right upper quadrant was performed with real-time and static doll-scale imaging. TECHNICAL QUALITY: Limited. Examination limited due to a combination of factors including obesity and bowel gas. COMPARISON: None. FINDINGS: Liver: The liver measures 20 cm. There is increased echogenicity consistent with fatty infiltration. The bile ducts are within normal limits. There is hepatic color flow. The direction of portal flow is hepatopetal. There is no demonstrated mass lesion. Gallbladder: Normal distended gallbladder. The gallbladder wall measures 2 mm. There is a positive sonographic Ortega''s sign. There is pericholecystic fluid. There are multiple echogenic structures within the gallbladder, consistent with multiple gallstones. Common Bile Duct (C.B.D.): The common bile duct measures 5 mm. Pancreas: There is nonvisualization of the pancreas. Right Kidney: Normal size of the right kidney. The right kidney measures 12.4 cm. Normal renal cortex. The right cortex measures 2.3 cm. There is no demonstrated renal mass or cyst. There is no right hydronephrosis. US/Gallbladder IMPRESSION: Limited by patient''s size and bowel gas. Abnormal gallbladder with stones and positive Ortega''s sign. Findings are consistent with acute cholecystitis. Fatty liver with hepatomegaly. Electronically Signed: Manan Benedict MD at 20:29 EST ,
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
[2024-08-10 18:41] LABS: Lipase 17 U/L (13-75)
[2024-08-10] MEDS: 0.9% Normal Saline (1000mL) 1,000 ML 200 ML IV (18:43)
[2024-08-10] MEDS: Ketorolac 30 MG/ML Syringe IV (18:44)
[2024-08-10] MEDS: Ondansetron 4 MG/2 ML Vial IV (18:44)
[2024-08-10] MEDS: Morphine 4 MG/ML Syringe IV (18:44)
[2024-08-10 18:48] VITALS: BP 132/79; PULSE 106; RESP 16; O2SAT 93
[2024-08-10 18:58] VITALS: TEMP 37.1
[2024-08-10 19:04] LABS: Color, Urine Straw (Yellow); Glucose, Dipstick Normal (Normal); Ketone-Dipstick 15 mg/dl (Negative); Leukocyte Esterase-Dipstick 25 /ul (Negative); Nitrite-Dipstick Negative (Negative); Occult Blood-Urine Negative /ul (Negative); Protein-Dipstick 30 mg/dl (Negative); Urine Bilirubin Dipstick Negative (Negative); Urine Clarity Clear (Clear); Urine Urobilinogen Normal (Normal)
[2024-08-10 19:31] LABS: Red Blood Cells-Urine 0-5 SEEN /hpf (0-5); Squamous Epithelial Cells - UA 0-5 SEEN /hpf (0-5); White Blood Cells 5-10 SEEN /hpf (0-5)
[2024-08-10 19:32] LABS: Mucous, Urine 1+ /hpf (<or=2+)
[2024-08-10 19:33] LABS: Bacteria RARE /hpf (None Seen)
--- NOTE | 2024-08-10 19:54 | CT_ITS ---
STUDY: CT ABDOMEN AND PELVIS WITH CONTRAST REASON FOR EXAM: Male, 54 years old. ruq pain, poor quality us RADIATION DOSAGE (If Supplied By Facility): CTDIvol = ( 15.91 ) mGy, DLP = ( 1428.78 ) mGycm TECHNIQUE: Transaxial images were obtained from the dome of the diaphragm to the symphysis pubis without oral contrast. IV 100mL Isovue-300 was administered. Sagittal and coronal images were reconstructed. Individualized dose optimization techniques were used for this CT. COMPARISON: None. FINDINGS: Significantly limited by patient size. This causes artifact and decreases resolution. Much of the left side of the abdomen is excluded from [id number]. Fatty infiltration of the liver. Hepatomegaly. No focal liver mass. Abnormal appearance of the gallbladder which shows thickened edematous wall and probable intraluminal sludge or stones. There is pericholecystic edema. Note that the ultrasound showed gallstones with a positive Ortega''s sign. Normal spleen. Normal pancreas. Normal bilateral adrenal glands. Normal right kidney. Normal left kidney. The left colon is not adequately visualized on this exam. The GI tract otherwise shows no definite acute abnormality. No evidence for obstruction. Normal appendix. Diverticulosis with no definite diverticulitis. Normal abdominal aorta. Normal inferior vena cava. Normal retroperitoneum. Normal urinary bladder. There is a small umbilical hernia containing fat. Normal osseous structures. CT/Abdomen/Pelvis W IV Cont ONLY IMPRESSION: Exam is significantly limited by patient size. In fact, portions of the left side of the abdomen were not imaged, and the technologist did not re-scan. Abnormal gallbladder with wall thickening, pericholecystic edema, and hyperdense intraluminal contents. Note: Ultrasound earlier today already showed and reported abnormal gallbladder with stones and positive Ortega''s sign consistent with acute cholecystitis. Electronically Signed: Manan Benedict MD at 21:31 EST ,
[2024-08-10 20:00] VITALS: BP 125/67; PULSE 92; RESP 20; O2SAT 93
[2024-08-10] MEDS: Piperacil/Tazobactam 3.375 GM in 0.9% Normal Saline (50mL MB+) 50 ML IV (21:37)
[2024-08-10 21:56] VITALS: BP 112/81; PULSE 92; RESP 18; TEMP 36.6; O2SAT 93
[2024-08-10 22:00] VITALS: BP 102/54; PULSE 87; RESP 18; TEMP 36.6; O2SAT 95
[2024-08-10] MEDS: Pantoprazole Sodium 40 MG in 0.9% Normal Saline (100mL MB+) 100 ML 330 MG IV (22:00)
[2024-08-10 22:31] VITALS: BMI 53.9
[2024-08-10 22:47] VITALS: BMI 44.1
[2024-08-10] MEDS: 0.9% Normal Saline (1000mL) 1,000 ML 125 ML IV (23:45)
[2024-08-11] VITALS (22 sets, daily range): BP systolic 118–154; BP diastolic 68–97; PULSE 73–133; RESP 14–18; TEMP 36.4–36.9; O2SAT 80–96; BMI 44.1
[2024-08-11] MEDS: oxyCODONE 5 MG Tablet PO ×3 (01:38→22:50)
[2024-08-11] MEDS: Acetaminophen 325 MG Tablet 650 MG PO ×2 (01:39→22:49)
[2024-08-11 05:39] LABS: Absolute Lymphocyte Count 2.13 X10^3/uL (0.83-4.51); Absolute Neutrophil Count 10.3 X10^3/uL (2.0-7.7); Basophil# 0.04 X10^3/uL; Basophil% 0.3 % (0-1); Eosinophil# 0.23 X10^3/uL; Eosinophils% 1.6 % (0-5); Hematocrit 42.4 % (40-54); Hemoglobin 13.8 g/dL (13.0-16.5); Lymphocyte # 2.13 X10^3/ul (0.83-4.51); Lymphocyte % 15.2 % (19-41); Mean Corp Hgb Conc 32.5 g/dL (32-36); Mean Corpuscular Hgb 27.8 pg (27.0-32.0); Mean Corpuscular Volume 85.3 fL (80-94); Mean Platelet Vol. 9.7 fl (6.2-12.0); Monocyte# 1.26 X10^3/uL; NRBC Flagged by Analyzer 0 % (0-5); Neutrophil # 10.27 X10^3/uL (2.7-7.7); Neutrophil % 73.5 % (47-70); Platelet Count 269 K/mm3 (150-450); RBC Distribution Width CV 14.5 % (11.6-14.6); RBC Distribution Width SD 44.9 fl (35.1-43.9); Red Blood Count 4.97 M/mm3 (4.6-6.2)
--- NOTE | 2024-08-11 05:55 | EKG12_ITS ---
Test Reason : PRE-OP Blood Pressure : */* mmHG Vent. Rate : 79 BPM Atrial Rate : 79 BPM P-R Int : 188 ms QRS Dur : 88 ms QT Int : 364 ms P-R-T Axes : 57 16 32 degrees QTcB Int : 417 ms Normal sinus rhythm Low voltage QRS Borderline ECG When compared with ECG of 13-Apr-2008 22:35, Premature ventricular complexes are no longer Present Confirmed by Mario Bowen ([id number]), newspaper editor managing ADILSON CROWDER ([id number]) on 08/11/2024 7:54:38 AM Referred By: Confirmed By: Mario Bowen
[2024-08-11 06:06] LABS: AST(SGOT) 12 U/L (15-37); Alanine Aminotransfer ALT/SGPT 26 U/L (16-61); Alkaline Phosphatase 70 U/L (45-117); Anion Gap 5 (5-15); BUN 15 mg/dL (7-18); BUN/Creat Ratio 12.6 RATIO (10-20); Bilirubin, Direct 0.39 mg/dL (0.00-0.30); Chloride 106 mmol/L (98-107); Creatinine, Serum 1.19 mg/dL (0.70-1.30); EST Glomerular Filtration Rate 68 mL/min (>60); Est Glom Filt Rate - Afr Amer 83 mL/min (>60); Estimated Creatinine Clearance 99.36 ml/min; Globulin 3.7 g/dL (2.2-4.2); Glucose 119 mg/dL (74-106); Potassium 3.7 mmol/L (3.5-5.1); Protein, Total 6.7 g/dL (6.4-8.2); Sodium Level 137 mmol/L (136-145)
[2024-08-11] MEDS: Piperacil/Tazobactam 3.375 GM in 0.9% Normal Saline (50mL MB+) 50 ML IV ×3 (06:11→21:45)
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
[2024-08-11] MEDS: Pantoprazole Sodium 40 MG in 0.9% Normal Saline (100mL MB+) 100 ML 330 MG IV (10:26)
[2024-08-11] MEDS: Lactated Ringers 1,000 ML 15 ML IV (12:13)
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
--- NOTE | 2024-08-11 13:00 | GALL_PTH ---
PATIENT: ABEL GUILLORY Jr. LOC: PCU U#:[id number] AGE/SX: 54/M ROOM: [facility] RE08/10/[address]: Dr. Nataliia Nobles MD : 1970 BED: 1 DIS: 08/13/2024 SPEC #: [id number] RECD: 08/11/24 17:57 STATUS: KATHERIN JORDAN #: [id number] KATIE: 08/11/24 13:[address]: Nataliia Nobles DEPT: SURGICAL PATHOLOGY RECD BY: Nahun Blackman ENTERED: 08/12/24 09:25 SP TYPE: MEGHA IVY DR: Dr. Andrae Humphrey MD Tissues: Gallbladder, NOS Procedures: Surgery Specimen Level III HEADER OPERATION: Laparoscopic, cholecystectomy with IOC PRE-OP DIAGNOSIS: Acute calculous cholecystitis TISSUE SUBMITTED: Gallbladder and contents MICROSCOPIC DIAGNOSIS Gallbladder, cholecystectomy: Chronic cholecystitis with minimal acute cholecystitis and cholelithiasis. AM. 08/13/2024 MICROSCOPIC DESCRIPTION Slides are reviewed. GROSS DESCRIPTION Received is one container labeled with the patient's name and designated gallbladder. The specimen consists of a previously opened gallbladder and receiving two fragments ranging in size from 4.0 to 5.0cm. No distinct cystic duct is identified. The external surface is smooth and glistening. Focally, it is granular, hemorrhagic and contains cautery artifact. The lumen of the gallbladder contains yellow-green mucoid bile and multiple yellow calculi ranging in size from 0.1 to 0.9cm. The mucosa is bile-stained and without any mass lesions. The gallbladder wall averages 0.4 cm in thickness and is free of mass lesions. Electric Tripper Machine Operator sections of the gallbladder are submitted in one cassette. / AM: 08/12/2024 TC:2 CPT: 45415
[2024-08-11 13:20] LABS: Pathologist Review Reviewed
[2024-08-11] MEDS: Bupivacaine Mpf 0.5% 30 ML VIAL (15:27)
--- NOTE | 2024-08-11 15:33 | PCM.OPRPT ---
Operative Report (Standard) Operative Information Surgery/Procedure Performed: Laparoscopic subtotal cholecystectomy, placement of YOLANDA Surgeon: Nataliia Nobles Date of Procedure: 08/11/24 Procedure Start Time: 13:35 Procedure Stop Time: 15:45 Pre-Operative Diagnosis: Acute cholecystitis Post-Operative Diagnosis: Same Select all DRAINS/GRAFTS/IMPLANTS that apply: Drains Drain details: 15 Nepali YOLANDA around Type of Anesthesia: General/Supplemental Special Medications: Zosyn 3.375 g IV every 8 hours for acute cholecystitis Estimated Blood Loss: 20 cc Specimen collected: Yes Description of specimen(s) removed: Gallbladder wall and stones Description of surgery: Indications: this is a 54 year-old male who developed abdominal pain/nausea/vomiting and on workup was found to have acute cholecystitis, cholelithiasis, with a normal common bile duct. Laparoscopic cholecystectomy was elected. Description procedure: The patient was placed on operating table in supine position. A timeout was completed verifying correct patient, procedure, site, position and special equipment prior to beginning procedure. General Anesthesia was induced. The abdomen was prepped and draped in usual sterile fashion. An incision was made in the natural skin line above the umbilicus. The fascia was elevated and incised. The peritoneum was elevated and incised. Entry into the peritoneum was confirmed visually and no bowel was noted in the vicinity of the incision. Diego trocar was placed. The abdomen was insufflated with carbon dioxide to a pressure of 12-15 mmHg. Patient tolerated insufflation well. The laparoscope was then inserted and abdomen inspected. No injuries from initial trocar placement were noted. Additional trochars were then inserted in the following locations 5 mm trocar in the epigastrium and 2 more 5 mm trochars along the right costal margin. The abdomen was inspected no abnormalities were found. The table is placed in reverse Trendelenburg position with the right side up. Omentum covering the gallbladder was removed with the harmonic. The dome of the gallbladder was grasped with atraumatic grasper passed through the lateral port and retracted over the dome of the liver. Dense adhesions at the neck of the gallbladder unable to safely identify the cystic duct & artery. Harmonic was used to take off the anterior gallbladder wall. Multiple stones were removed and placed in the endoscopic retrieval bag along with the wall of the gallbladder. Erbe was used to cauterize the remaining gallbladder posterior wall and infundibulum. Hemostasis was checked and the gallbladder and contained stones were removed using the endoscopic retrieval bag through the umbilical port. The gallbladder wall and stones were passed off table as specimen. The gallbladder fossa was irrigated with saline and hemostasis obtained. There is no evidence of bleeding from the gallbladder fossa. No bile was seen throughout the case. 15 Nepali YOLANDA was placed in the gallbladder fossa exiting the right lateral trocar site. Secured with 3 oh nylons. Secondary trochars removed under direct vision. No bleeding was noted the trocar sites. The laparoscope was withdrawn and umbilical trocar removed. The abdomen was allowed to collapse. The fascia of the 12 mm trocar was closed with 2 [id number] 0 Vicryl suture. The skin was closed with sutures of 4-0 Monocryl and Steri-Strips. The patient was extubated. The patient tolerated procedure well and was taken to the postanesthesia care unit in stable condition. Surgical Findings: Acute cholecystitis, densely adherent at the neck of the gallbladder?converted the subtotal. 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
--- NOTE | 2024-08-11 16:02 | PCM.POST.ANE ---
Anesthesia: Postop Eval I Current Vital Signs Temperature: 98.5 F Pulse Rate: 122 Blood Pressure: 144/91 Respiratory Rate: 18 Pulse Ox: 93 Oxygen Delivery Method: Simple Mask Oxygen Flow Rate (L/min): 8 Assessment Airway patent: Yes Spontaneous unlabored respirations: Yes Mental status: Awake and Calm nausea: No Vomiting: No Anesthesia Complication: No Fluid Hydration Crystalloid volume administer (ml): 1,200 Total IV fluid infused: 1,200 Progress Note Anesthesia document: Postop Eval 1 completed: Yes
[2024-08-11] MEDS: Ipratropium 0.5 MG/2.5 ML SOLUTION INHALATION (17:39)
--- NOTE | 2024-08-11 18:36 | POSTOPAN2_ITS ---
Anesthesia Postop Eval I Sum Postop Eval Completion status Anesthesia document: Postop Eval 1 completed: Yes Anesthesia Postop Eval I Summary Anesthesia Postop Eval I Summary: Anesthesia Postop Eval I: Assessment Summary Airway patent Yes 08/11/24 16:02 FACS [email or web address] Spontaneous unlabored Yes 08/11/24 16:02 FACS [email or web address] respirations Mental status Awake,Calm 08/11/24 16:02 FACS [email or web address].[email or web address] nausea No 08/11/24 16:02 FACS TEACHER.[email or web address] Vomiting No 08/11/24 16:02 FACS [email or web address].[email or web address] Anesthesia Postop Eval I: Fluid Summary Crystalloid volume administer 1,200 08/11/24 16:02 FACS [email or web address] (ml) Colloids volume administered ( ml) Blood Product volume administered (ml) Total IV fluid infused 1,200 08/11/24 16:02 FACS [email or web address] Anesthesia Postop Eval I: Summary Notes Anesthesia Complication No 08/11/24 16:02 FACS [email or web address] Anesthesia Complication Comment: Post-operative progress note Anesthesia: Postop Eval II Evaluation Mental status: Awake Pain Level: 0 nausea: No Vomiting: No
--- NOTE | 2024-08-11 18:36 | PCM.POSTANE2 ---
Anesthesia Postop Eval I Sum Postop Eval Completion status Anesthesia document: Postop Eval 1 completed: Yes Anesthesia Postop Eval I Summary Anesthesia Postop Eval I Summary: Anesthesia Postop Eval I: Assessment Summary Airway patent Yes 08/11/24 16:02 HOUSE [email or web address].[email or web address] Spontaneous unlabored Yes 08/11/24 16:02 HOUSE SUPERINTENDENT.[email or web address] respirations Mental status Awake,Calm 08/11/24 16:02 HOUSE SUPERINTENDENT.[email or web address] nausea No 08/11/24 16:02 HOUSE SUPERINTENDENT.[email or web address] Vomiting No 08/11/24 16:02 HOUSE SUPERINTENDENT.[email or web address] Anesthesia Postop Eval I: Fluid Summary Crystalloid volume administer 1,200 08/11/24 16:02 HOUSE SUPERINTENDENT.[email or web address] (ml) Colloids volume administered ( ml) Blood Product volume administered (ml) Total IV fluid infused 1,200 08/11/24 16:02 HOUSE SUPERINTENDENT.JOSEP Anesthesia Postop Eval I: Summary Notes Anesthesia Complication No 08/11/24 16:02 HOUSE [email or web address].JOSEP Anesthesia Complication Comment: Post-operative progress note Anesthesia: Postop Eval II Evaluation Mental status: Awake Pain Level: 0 nausea: No Vomiting: No
--- NOTE | 2024-08-11 22:49 | CPS ---
Pt is set up for home cpap unit with a continuous pulse and O2 bled in line.
--- NOTE | 2024-08-11 22:53 | CPS ---
Pt on own cpap machine tonight with 5-6L bled in. Pt using home cpap unit tonight.
[2024-08-12] VITALS (7 sets, daily range): BP systolic 116–144; BP diastolic 68–91; PULSE 76–89; RESP 18; TEMP 36.1–36.6; O2SAT 93–98
[2024-08-12] MEDS: Piperacil/Tazobactam 3.375 GM in 0.9% Normal Saline (50mL MB+) 50 ML IV ×3 (07:51→21:52)
--- NOTE | 2024-08-12 08:06 | PCM.PN.SRG ---
Subjective Subjective Patient evaluated resting comfortably in bed. He notes abdominal soreness. He denies nausea, vomiting, fever. He is s/p subtotal cholecystectomy with YOLANDA drain placement. Drain output was approximately 40 cc overnight. Objective Data Objective Data Vital Signs: Vital Signs Temp Pulse Resp BP Pulse Ox O2 Del Method O2 Flow Rate 97.4 F L 80 18 144/91 H 93 Nasal Cannula 6 08/12/24 04:00 08/12/24 04:00 08/12/24 04:00 08/12/24 04:00 08/12/24 04:00 08/12/24 04:00 08/12/24 04:00 Oxygen Flow Rate (L/min) 6 Oxygen Delivery Method Nasal Cannula Weight: 299 lb 6.204 oz Body Mass Index (BMI) 44.1 Intake & Output: Intake and Output for Last 24 Hours 08/10/24 08/11/24 08/12/24 23:59 23:59 23:59 Intake Total 1160 / 1160 1890 / 1890 50 / 50 Output Total 30 30 20 / 20 Balance 1160 / 1160 1860 / 1860 30 / 30 Lab / Micro Data 08/12/24 06:32 08/12/24 06:32 Labs: Laboratory Results - last 24 hr 08/10/24 17:17: Diff Path Review Reviewed Physical Exam GI GI Narrative: Abdomen- obese, distended, tenderness generalized, slightly more in the RUQ. YOLANDA drain intact with serosanguineous fluid noted. No bile noted within the bulb. Incisions c/d/i. No erythema or infection noted. Assessment & Plan Assessment/Plan (1) Acute calculous cholecystitis: PLAN: I am following this patient in conjunction with Dr. Nobles. She will independently evaluate this patient. Labs reviewed. WBC is elevated. Liver enzymes have returned to normal. Repeat lab work in the morning Continue IV antibiotics Leave YOLANDA in place today Encourage ambulation, sitting in the chair and I.S today We will continue to monitor this patient Charges/Coding Visit Charges Inpatient E&M: 48241 Subs Hosp L1 (no charge; post-op)
[2024-08-12] MEDS: Acetaminophen 325 MG Tablet 650 MG PO ×3 (08:14→21:57)
[2024-08-12] MEDS: oxyCODONE 5 MG Tablet PO ×3 (08:15→21:58)
[2024-08-12 09:15] LABS: Basophil% 0.1 % (0-1); Eosinophils% 0.1 % (0-5); Hematocrit 39.1 % (40-54); Hemoglobin 12.9 g/dL (13.0-16.5); Lymphocyte % 9.2 % (19-41); Mean Corpuscular Hgb 28.1 pg (27.0-32.0); Mean Corpuscular Volume 85.2 fL (80-94); Mean Platelet Vol. 9.7 fl (6.2-12.0); Monocyte% 6.1 % (0-10); Platelet Count 282 K/mm3 (150-450); RBC Distribution Width SD 43.6 fl (35.1-43.9); Red Blood Count 4.59 M/mm3 (4.6-6.2); White Blood Count 17.6 K/mm3 (4.4-11.0)
[2024-08-12 09:16] LABS: Basophil# 0.02 X10^3/uL; Eosinophil# 0.02 X10^3/uL; Lymphocyte # 1.62 X10^3/ul (0.83-4.51); Monocyte# 1.07 X10^3/uL
[2024-08-12 09:17] LABS: Absolute Lymphocyte Count 1.62 X10^3/uL (0.83-4.51); Absolute Neutrophil Count 14.8 X10^3/uL (2.0-7.7)
[2024-08-12 09:47] LABS: AST(SGOT) 19 U/L (15-37); Alanine Aminotransfer ALT/SGPT 31 U/L (16-61); Albumin, Serum 2.8 g/dL (3.2-5.0); Alkaline Phosphatase 71 U/L (45-117); Anion Gap 5 (5-15); BUN 18 mg/dL (7-18); BUN/Creat Ratio 14.3 RATIO (10-20); Bilirubin, Direct 0.22 mg/dL (0.00-0.30); Calcium,Total 8.5 mg/dL (8.5-10.1); Chloride 104 mmol/L (98-107); Creatinine, Serum 1.26 mg/dL (0.70-1.30); EST Glomerular Filtration Rate 64 mL/min (>60); Est Glom Filt Rate - Afr Amer 78 mL/min (>60); Estimated Creatinine Clearance 93.84 ml/min; Globulin 3.9 g/dL (2.2-4.2); Glucose 188 mg/dL (74-106); Potassium 4.1 mmol/L (3.5-5.1); Protein, Total 6.7 g/dL (6.4-8.2); Sodium Level 135 mmol/L (136-145)
[2024-08-12] MEDS: Lisinopril 20 MG Tablet PO (11:35)
[2024-08-12] MEDS: Pantoprazole Sodium 40 MG in 0.9% Normal Saline (100mL MB+) 100 ML 330 MG IV (11:35)
[2024-08-12] MEDS: hydroCHLOROthiazide 12.5mg 12.5 MG PO (11:42)
--- NOTE | 2024-08-12 21:21 | CPS ---
Patient brought in own PAP machine for the night.
[2024-08-12] MEDS: Docusate Sodium 100 MG Capsule PO (22:04)
[2024-08-13 04:00] VITALS: BP 112/66; PULSE 64; RESP 18; TEMP 36.1; O2SAT 99
[2024-08-13] MEDS: Piperacil/Tazobactam 3.375 GM in 0.9% Normal Saline (50mL MB+) 50 ML IV (05:34)
[2024-08-13 06:36] LABS: Absolute Lymphocyte Count 2.51 X10^3/uL (0.83-4.51); Absolute Neutrophil Count 6.7 X10^3/uL (2.0-7.7); Basophil# 0.04 X10^3/uL; Basophil% 0.4 % (0-1); Eosinophil# 0.28 X10^3/uL; Eosinophils% 2.7 % (0-5); Hematocrit 39.3 % (40-54); Hemoglobin 12.8 g/dL (13.0-16.5); Lymphocyte # 2.51 X10^3/ul (0.83-4.51); Mean Corp Hgb Conc 32.6 g/dL (32-36); Mean Corpuscular Hgb 28.3 pg (27.0-32.0); Mean Corpuscular Volume 86.9 fL (80-94); Mean Platelet Vol. 9.7 fl (6.2-12.0); Monocyte# 0.91 X10^3/uL; Monocyte% 8.7 % (0-10); NRBC Flagged by Analyzer 0 % (0-5); Neutrophil # 6.66 X10^3/uL (2.7-7.7); Neutrophil % 63.8 % (47-70); Platelet Count 334 K/mm3 (150-450); RBC Distribution Width CV 14.3 % (11.6-14.6); RBC Distribution Width SD 45.9 fl (35.1-43.9); Red Blood Count 4.52 M/mm3 (4.6-6.2); White Blood Count 10.4 K/mm3 (4.4-11.0)
[2024-08-13 06:55] LABS: ALB/GLOB Ratio 0.7 RATIO (0.9-2.4); AST(SGOT) 13 U/L (15-37); Alanine Aminotransfer ALT/SGPT 30 U/L (16-61); Albumin, Serum 2.7 g/dL (3.2-5.0); Alkaline Phosphatase 71 U/L (45-117); Anion Gap 7 (5-15); BUN 19 mg/dL (7-18); BUN/Creat Ratio 16.4 RATIO (10-20); Calcium,Total 8.3 mg/dL (8.5-10.1); Chloride 105 mmol/L (98-107); Creatinine, Serum 1.16 mg/dL (0.70-1.30); EST Glomerular Filtration Rate 70 mL/min (>60); Est Glom Filt Rate - Afr Amer 85 mL/min (>60); Estimated Creatinine Clearance 101.93 ml/min; Globulin 3.9 g/dL (2.2-4.2); Glucose 111 mg/dL (74-106); Potassium 3.9 mmol/L (3.5-5.1); Protein, Total 6.6 g/dL (6.4-8.2); Sodium Level 137 mmol/L (136-145)
[2024-08-13 07:34] VITALS: O2SAT 96
--- NOTE | 2024-08-13 07:54 | DCINST_ITS ---
Discharge Instructions Diet Discharge Diet: Light diet - advance as tolerated Activity Discharge Activity: May Not Drive (while taking narcotic pain medications.) and May Not Shower (with YOLANDA--or lower shower only) May shower in (days): 1 Lifting Restrictions: no lifting >20 lbs x 2 wks, no strenuous exercise for 4 wks Dressing / Incision Call your doctor if your incision/area has: Continuous Slow Oozing, Sudden Increased Bleeding, Increased Pain/ Swelling, Increased Redness, Foul Smelling Discharge and Swelling at the incision site Call your doctor if you observe: Fever of 101 or Higher Change Dressing in: 1 day (at YOLANDA site) Cleanse incision/area with: Soap & Water and Keep Dressing Clean & Dry (at YOLANDA site while YOLANDA in place) Drain: Suction (keep log and strip drain BID) Additional Dressing/Incision Instructions:: Steri-Strips will fall off in 7 to 10 days, if they do not fall off okay to remove after 10 days. Follow Up Care Please Follow Up With: Nataliia Nobles MD When: Call the office for a follow-up appointment tomorrow for YOLANDA removal-bring YOLANDA log to appt; after 5 PM and on the weekends call [phone] with any concerns. Test Results: Test results from this visit will be discussed in further detail at your follow- up appointment, if applicable. Discharge Plan Admission Admit Date/Time: 08/10/24 21:42 Attending Provider: Nataliia Nobles Primary Care Provider: Andrae Humphrey Discharge Orders/Prescriptions Prescriptions: New oxycodone 5 mg capsule 5 mg PO Q6H PRN (Reason: pain) 3 Days Qty: 10 0RF Continued lisinopril-hydrochlorothiazide 20-12.5 mg tablet 1 tab PO DAILY Patient Comments: take 1 tablet by mouth every morning lansoprazole [Prevacid] 30 mg capsule,delayed release(DR/EC) 30 mg PO DAILY Qty: 30 0RF ibuprofen 800 mg tablet 800 mg PO TID Referrals / Follow Up: Andrae Humphrey MD [Primary Care Provider] - Disposition Disposition (needs filled in before D/C Order can be placed): Home, Self Care
--- NOTE | 2024-08-13 08:10 | PCM.DC.SUM ---
Providers Date of Admission: 08/10/24 Primary Care Physician: Dr. Andrae Humphrey MD Reason For Visit: CHOLECYSTITIS CHOLELITHIASIS Diagnosis Discharge Diagnosis (1) Acute calculous cholecystitis: Status: Acute Code(s): K80.00 - Calculus of gallbladder with acute cholecystitis without obstruction Plan: I am following this patient in conjunction with Dr. Nobles. She will independently evaluate this patient. Labs reviewed. WBC is elevated. Liver enzymes have returned to normal. Repeat lab work in the morning Continue IV antibiotics Leave YOLANDA in place today Encourage ambulation, sitting in the chair and I.S today We will continue to monitor this patient Medications at Discharge Home Medications lisinopril 20 mg-hydrochlorothiazide 12.5 mg tablet 1 tab PO DAILY 04/26/22 lansoprazole 30 mg capsule,delayed release (Prevacid) 30 mg PO DAILY #30 caps 08/09/24 ibuprofen 800 mg tablet 800 mg PO TID 08/10/24 oxycodone 5 mg capsule 5 mg PO Q6H PRN pain 3 days #10 caps 08/13/24 Hospital Course Operations cholecystecomy (Laparoscopic subtotal cholecystectomy, placement of YOLANDA) Summary of Care Provided Minutes Spent on Discharge: 30 Hospital Course: Patient is a 54 y/o M who presented with 5 days of epigastric/right upper quadrant pain. Patient had a RUQ u/s which demonstrated cholelithiasis and positive Ortega's sign. CT scan of ab/pel was also obtained demonstrating inflammation surrounding the gallbladder consistent with cholecystitis. Dr. Nobles performed a Laparoscopic subtotal cholecystectomy, placement of YOLANAD on 08/11/24. Patient tolerated the procedure well. Patient had an uneventful hospitalization. Upon discharge, he was tolerating a diet well. He denies nausea, vomiting. He will be discharged to home with YOLANDA drain intact and instructed on how to record the output. He will need to bring the record sheet with him to tomorrow's appointment to have the drain removed. No further antibiotics are required as an outpatient. Physical Exam GI GI Narrative: Abdomen- obese, soft. Tenderness RUQ. YOLANDA drain intact with serosanguineous drainage noted. Incisions c/d/i. No erythema or infection noted. Weight / BMI Weight Weight: 299 lb 6.204 oz Body Mass Index (BMI) 44.1 ABG / Lab / Microbiology Data 08/13/24 06:12 08/13/24 06:12 Laboratory: Laboratory Results - last 24 hr 08/12/24 06:32: WBC 17.6 H, RBC 4.59 L, Hgb 12.9 L, Hct 39.1 L, MCV 85.2, MCH 28.1, MCHC 33.0, RDW Std Deviation 43.6, RDW Coeff of Thanh 14.0, Plt Count 282, MPV 9.7, Immature Gran % (Auto) 0.500, Neut % (Auto) 84.0 H, Lymph % (Auto) 9.2 L, [place] % (Auto) 6.1, Eos % (Auto) 0.1, Baso % (Auto) 0.1, Absolute Neuts (auto) 14.8 H, Absolute Lymphs (auto) 1.62, Sodium 135 L, Potassium 4.1, Chloride 104, Carbon Dioxide 26.0, Anion Gap 5, BUN 18, Creatinine 1.26, Estim Creat Clear Calc 93.84, Est GFR (MDRD) Af Amer 78, Est GFR (MDRD) Non-Af 64, BUN/Creatinine Ratio 14.3, Glucose 188 H, Calcium 8.5, Total Bilirubin 0.70, Direct Bilirubin 0.22, AST 19, ALT 31, Alkaline Phosphatase 71, Total Protein 6.7, Albumin 2.8 L, Globulin 3.9 08/13/24 06:12: WBC 10.4, RBC 4.52 L, Hgb 12.8 L, Hct 39.3 L, MCV 86.9, MCH 28.3, MCHC 32.6, RDW Std Deviation 45.9 H, RDW Coeff of Thanh 14.3, Plt Count 334, MPV 9.7, Immature Gran % (Auto) 0.400, Neut % (Auto) 63.8, Lymph % (Auto) 24.0, [place] % (Auto) 8.7, Eos % (Auto) 2.7, Baso % (Auto) 0.4, Absolute Neuts (auto) 6.7, Absolute Lymphs (auto) 2.51, Nucleated RBC % 0, Sodium 137, Potassium 3.9, Chloride 105, Carbon Dioxide 26.0, Anion Gap 7, BUN 19 H, Creatinine 1.16, Estim Creat Clear Calc 101.93, Est GFR (MDRD) Af Amer 85, Est GFR (MDRD) Non-Af 70, BUN/Creatinine Ratio 16.4, Glucose 111 H, Calcium 8.3 L, Total Bilirubin 0.50, AST 13 L, ALT 30, Alkaline Phosphatase 71, Total Protein 6.6, Albumin 2.7 L, Globulin 3.9, Albumin/Globulin Ratio 0.7 L D/C Instructions Discharge Diet: Light diet - advance as tolerated May shower in (days): 1 Call your doctor if your incision/area has: Continuous Slow Oozing, Sudden Increased Bleeding, Increased Pain/ Swelling, Increased Redness, Foul Smelling Discharge and Swelling at the incision site Call your doctor if you observe: Fever of 101 or Higher Cleanse incision/area with: Soap & Water and Keep Dressing Clean & Dry (at YOLANDA site while YOLANDA in place) Drain: Suction (keep log and strip drain BID) Additional Dressing/Incision Instructions: Steri-Strips will fall off in 7 to 10 days, if they do not fall off okay to remove after 10 days. DC O2, CPAP, BIPAP Needs PSN CPAP & BiPAP: BiPAP & CPAP Settings per PSN Mode CPAP 08/11/24 22:53 Bipap Delivery Device Face Mask 08/11/24 22:53 BiPAP Expiratory Pressure 15 08/11/24 02:10 Additional Home O2 Discharge instructions: No DC home with Oxygen: No Please Follow Up With: Nataliia Nobles MD When: Call the office for a follow-up appointment tomorrow for YOLANDA removal-bring YOLANDA log to appt; after 5 PM and on the weekends call [phone] with any concerns. Meaningful Use Info Meaningful Use Meaningful Use Diagnoses (Choose all that apply): None applicable Ischemic Stroke Statin Dosing Therapy Reference: STATIN DOSE THERAPY REFERENCE: * Patients > 75 years receive moderate or high dose statin therapy. * Patients 75 years or YOUNGER should receive HIGH intensity statin dose unless contraindicated. You will be required to document reason for non-treatment if statin daily dose does not meet guidelines. HIGH DOSE STATIN THERAPY DAILY Atorvastatin > than or = to 40 mg Rosuvastatin > than or = to 20 mg Amlodipine + Atorvastatin > than or = to 2.5/40 mg Ezetimibe + Simvastatin 10/80 mg Simvastatin 80mg Discharge Plan Admission Admit Date/Time: 08/10/24 21:42 Attending Provider: Nataliia Nobles Primary Care Provider: Andrae Humphrey Discharge Orders/Prescriptions Prescriptions: New oxycodone 5 mg capsule 5 mg PO Q6H PRN (Reason: pain) 3 Days Qty: 10 0RF Continued lisinopril-hydrochlorothiazide 20-12.5 mg tablet 1 tab PO DAILY Patient Comments: take 1 tablet by mouth every morning lansoprazole [Prevacid] 30 mg capsule,delayed release(DR/EC) 30 mg PO DAILY Qty: 30 0RF ibuprofen 800 mg tablet 800 mg PO TID Referrals / Follow Up: Andrae Humphrey MD [Primary Care Provider] - Disposition Disposition (needs filled in before D/C Order can be placed): Home, Self Care Charges/Coding Visit Charges Inpatient E&M: 66483 Disch Hosp (Post-op; no charge)
[2024-08-13] MEDS: hydroCHLOROthiazide 12.5mg 12.5 MG PO (08:14)
[2024-08-13] MEDS: Lisinopril 20 MG Tablet PO (08:14)
[2024-08-13] MEDS: Docusate Sodium 100 MG Capsule PO (08:14)
[2024-08-13 08:25] VITALS: BP 112/67; PULSE 67; RESP 18; TEMP 36.6; O2SAT 96
--- NOTE | 2024-08-13 08:44 | PN.SURG_ITS ---
Subjective Subjective jose PO, YOLANDA ss Objective Data Objective Data Vital Signs: Vital Signs Temp Pulse Resp BP Pulse Ox O2 Del Method O2 Flow Rate 97.9 F 67 18 112/67 96 Room Air 6 08/13/24 08:25 08/13/24 08:25 08/13/24 08:25 08/13/24 08:25 08/13/24 08:25 08/13/24 08:25 08/12/24 04:00 Oxygen Flow Rate (L/min) 6 Oxygen Delivery Method Room Air Weight: 299 lb 6.204 oz Body Mass Index (BMI) 44.1 Intake & Output: Intake and Output for Last 24 Hours 08/11/24 08/12/24 08/13/24 23:59 23:59 23:59 Intake Total 1890 / 1890 1260 / 1260 350 / 350 Output Total 30 / 30 60 / 60 20 / 20 Balance 1860 / 1860 1200 / 1200 330 / 330 Lab / Micro Data 08/13/24 06:12 08/13/24 06:12 Labs: Laboratory Results - last 24 hr 08/12/24 06:32: WBC 17.6 H, RBC 4.59 L, Hgb 12.9 L, Hct 39.1 L, MCV 85.2, MCH 28.1, MCHC 33.0, RDW Std Deviation 43.6, RDW Coeff of Thanh 14.0, Plt Count 282, MPV 9.7, Immature Gran % (Auto) 0.500, Neut % (Auto) 84.0 H, Lymph % (Auto) 9.2 L, [place] % (Auto) 6.1, Eos % (Auto) 0.1, Baso % (Auto) 0.1, Absolute Neuts (auto) 14.8 H, Absolute Lymphs (auto) 1.62, Sodium 135 L, Potassium 4.1, Chloride 104, Carbon Dioxide 26.0, Anion Gap 5, BUN 18, Creatinine 1.26, Estim Creat Clear Calc 93.84, Est GFR (MDRD) Af Amer 78, Est GFR (MDRD) Non-Af 64, BUN/Creatinine Ratio 14.3, Glucose 188 H, Calcium 8.5, Total Bilirubin 0.70, Direct Bilirubin 0.22, AST 19, ALT 31, Alkaline Phosphatase 71, Total Protein 6.7, Albumin 2.8 L, Globulin 3.9 08/13/24 06:12: WBC 10.4, RBC 4.52 L, Hgb 12.8 L, Hct 39.3 L, MCV 86.9, MCH 28.3, MCHC 32.6, RDW Std Deviation 45.9 H, RDW Coeff of Thanh 14.3, Plt Count 334, MPV 9.7, Immature Gran % (Auto) 0.400, Neut % (Auto) 63.8, Lymph % (Auto) 24.0, [place] % (Auto) 8.7, Eos % (Auto) 2.7, Baso % (Auto) 0.4, Absolute Neuts (auto) 6.7, Absolute Lymphs (auto) 2.51, Nucleated RBC % 0, Sodium 137, Potassium 3.9, Chloride 105, Carbon Dioxide 26.0, Anion Gap 7, BUN 19 H, Creatinine 1.16, Estim Creat Clear Calc 101.93, Est GFR (MDRD) Af Amer 85, Est GFR (MDRD) Non-Af 70, BUN/Creatinine Ratio 16.4, Glucose 111 H, Calcium 8.3 L, Total Bilirubin 0.50, A ST 13 L, ALT 30, Alkaline Phosphatase 71, Total Protein 6.6, Albumin 2.7 L, Globulin 3.9, Albumin/Globulin Ratio 0.7 L Physical Exam Narrative YOLANDA ss Resp normal respiratory effort Cardio regular rate GI GI Narrative: Abdomen: Soft, nondistended, tender near incision's dressed clean dry and intact, no peritoneal signs Assessment & Plan Assessment/Plan (1) S/P laparoscopic cholecystectomy: (2) BMI 40.0-44.9, adult: PLAN: Plan jose PO, YOLANDA ss- will d/c with YOLANDA - has f/u appt tomorrow for removal. Nataliia Nobles M.D. Pager: [phone] [facility] [address] [place] [address], [facility], [address] [place] [address] Office: [phone]
--- NOTE | 2024-08-13 09:30 | CASEMGMT ---
Addendum entered by Gabriele Desai 08/13/24 10:36: Pt discharging home w/YOLANDA drain and he states he will be comfortable w/draining/managing this @ home. RNMarv, aware of YOLANDA education needed. Original Note: RN CM END FINDER TWISTING DEPARTMENT CM?to room to meet with patient for initial transition planning/care coordination assessment. RN CM?introduced self and role at [facility]. Pt voices understanding and consents to assessment?at this time. Pt resting in bed in no distress at this time. Pt is A/O at this time and answers all questions appropriately. Care providers, pharmacy, and demographics verified/updated at this time. Strata:?2 PCP: Dr Humphrey Specialists: Dr Narvaez-neurology Preferred Pharmacy: [facility] Retail @ discharge. Otherwise, uses [facility] in [place]. Would like [id number]. Pharmacy notified. Insurance: MMO, UMR Prescription Benefit: Yes LNOK: , Mara. Son, Phillip. Dtr, Marisabel Living Arrangements: Lives w/ and 2 adult children in one-story home w/3 steps to enter. Independent @ baseline. can assist, as needed. Transportation:?Pt and both drive. will take pt home @ dc. DME: Uses a CPAP only. HHC/SNF: No hx of either. Has went to OP therapy @ [facility] in the past. Pt wishes to return home and states has no concerns with going home. PLAN: Home w/spousal support and discharge plans in place. Bruce CLEMENTS RN, CM
[2024-08-13] MEDS: Pantoprazole Sodium 40 MG in 0.9% Normal Saline (100mL MB+) 100 ML 330 MG IV (10:28)
[2024-08-13 11:19] VITALS: BP 112/67; PULSE 67; RESP 18; TEMP 36.6; O2SAT 96
== END 2024-08-13 13:18 | disposition home or self-care (01) | DRG 419 ==
LOC: ED 21:51 → PCU 21:57
PROVIDERS: Physician Assistant; Admitting Provider Surgery; Emergency Provider Emergency Medicine; PCP Family Medicine; Visit Provider Surgery
PROC: 0FB44ZZ Excision of Gallbladder, Percutaneous Endoscopic Approach (ICD-10-PCS; CPT 47610; principal; 2024-08-11 12:45)
DX: K80.12 Calculus of gallbladder with acute and chronic cholecystitis without obstruction (principal); I10 Essential (primary) hypertension; K42.9 Umbilical hernia without obstruction or gangrene; Z88.1 Allergy status to other antibiotic agents; Z79.899 Other long term (current) drug therapy; Z87.19 Personal history of other diseases of the digestive system
CPT/HCPCS: 36415; 74177; 76705; 80048; 80053; 80076; 81001; 83690; 85025; 88304; 93005; 94640; 94660; 94668; 94762; 99284; Q9967; A4216; J2405